=== PATIENT | female | born 1995 | race Two or more races ===

== ENCOUNTER 2023-02-11 10:38 | Emergency (ER) | payer SELFPAY ==
[~2023-02-11] VITALS: Ht 152.4 cm; Wt 50.9 kg
[2023-02-11 10:58] VITALS: BP 125/83
== END 2023-02-11 14:58 | disposition home or self-care (01) ==
LOC: ER 10:38
DX: R07.81 Pleurodynia (principal); R50.9 Fever, unspecified
CPT/HCPCS: 71101